=== PATIENT | male | born 1965 | race Caucasian/White ===

== ENCOUNTER 2016-03-29 19:22 | Observation (INO) | payer OTHER ==
[2016-03-29 20:02] LABS: ABSOLUTE BASOPHILS # (AUTO) 0.1 10^3/uL (0.0-0.2); ABSOLUTE EOSINOPHILS # (AUTO) 0.1 10^3/uL (0.0-0.6); ABSOLUTE LYMPHOCYTES (AUTO) 2.1 10^3/uL (0.5-4.7); ABSOLUTE MONOCYTES (AUTO) 0.8 10^3/uL (0.1-1.4); ABSOLUTE NEUT (AUTO) 6.7 10^3/uL (1.7-8.2); BASOPHILS % (AUTO) 0.8 % (0-2); EOSINOPHILS % (AUTO) 1.3 % (0-6); HEMATOCRIT 44.3 % (37.9-51.0); HEMOGLOBIN 14.9 g/dL (13.5-17.0); HGB HCT DIFFERENCE 0.4; LYMPHOCYTES % (AUTO) 21.2 % (13-45); MEAN CORPUSCULAR HEMOGLOBIN 32.1 pg (27.0-33.4); MEAN CORPUSCULAR HGB CONC 33.7 g/dL (32.0-36.0); MEAN CORPUSCULAR VOLUME 95 fl (80-97); MONOCYTES % (AUTO) 8.4 % (3-13); RED BLOOD COUNT 4.65 10^6/uL (4.35-5.55); SEGMENTED NEUTROPHILS % (AUTO) 68.3 % (42-78); WHITE BLOOD COUNT 9.7 10^3/uL (4.0-10.5)
--- NOTE | 2016-03-29 20:04 | ER Document Report ---
ED General - General Chief Complaint: Syncope Stated Complaint: FALL,HEAD INJURY Time seen by provider: 20:00 Mode of Arrival: Ambulatory Information source: Patient Notes: This is a 50-year-old man with a history of diabetes, dyslipidemia, PTSD. The patient is brought in by EMS after a witnessed syncopal episode. Patient had gotten up off the couch to go answer the door and had a syncopal episode. The patient's was with his and she states that he was completely out and that was confused and she called EMS. EMS reports that they thought that her initial EKG showed possible ST elevations in lead 1 and now. The patient does have a history of a right bundle branch block. He denies any chest pain or shortness of breath. He currently states that he has some pain in his left shoulder from the fall and right knee. - HPI Onset: Just prior to arrival Onset/Duration: Sudden Quality of pain: No pain Severity: None Pain Level: Denies Associated symptoms: denies: Chills, Fever, Shortness of breath Exacerbated by: Denies Relieved by: Denies Similar symptoms previously: Yes Recently seen / treated by doctor: No - Related Data Allergies/Adverse Reactions: No Known Allergies Allergy (Verified 03/29/16 19:50) Home Medications: Current Home Medications Atorvastatin Calcium [Lipitor 40 mg Tablet] 40 mg PO QHS 03/29/16 [History] Celecoxib [Celebrex 200 mg Capsule] 200 mg PO Q12 03/29/16 [History] Cetirizine HCl [All Day Allergy] 10 mg PO DAILY 03/29/16 [History] Clonazepam [Klonopin 1 mg Tablet] 1 mg PO BID PRN 03/29/16 [History] Empagliflozin [Jardiance] 25 mg PO DAILY 03/29/16 [History] Ergocalciferol (Vitamin D2) [Vitamin D2] 50,000 unit PO ASDIR PRN 03/29/16 [ History] Levothyroxine Sodium [Synthroid 0.088 mg Tablet] 0.088 mg PO DAILY 03/29/16 [ History] Metformin HCl [Glucophage] 1,000 mg PO BID 03/29/16 [History] Omeprazole 40 mg PO BID 03/29/16 [History] Telmisartan [Micardis 80 mg Tablet] 80 mg PO DAILY 03/29/16 [History] Venlafaxine HCl [Venlafaxine HCl ER] 150 mg PO DAILY 03/29/16 [History] Past Medical History - General Information source: Patient - Social History Smoking Status: Never Smoker Cigarette use (# per day): No Chew tobacco use (# tins/day): No Frequency of alcohol use: None Drug Abuse: None Lives with: Family Family History: None Patient has suicidal ideation: No Patient has homicidal ideation: No - Past Medical History Cardiac Medical History: Reports: Hx Hypertension Pulmonary Medical History: Reports: None Neurological Medical History: Reports: None Endocrine Medical History: Reports: Hx Diabetes Mellitus Type 2 Renal/ Medical History: Reports: None Malignancy Medical History: Reports None GI Medical History: Reports: Hx Gastroesophageal Reflux Disease Musculoskeltal Medical History: Reports None Psychiatric Medical History: Reports: Hx Anxiety, Hx Depression, Hx Post Traumatic Stress Disorder Past Surgical History: Reports: Hx Adenoidectomy, Hx Tonsillectomy Review of Systems - Review of Systems Constitutional: denies: Chills, Fever EENT: No symptoms reported Cardiovascular: No symptoms reported Respiratory: No symptoms reported Gastrointestinal: No symptoms reported Genitourinary: No symptoms reported Male Genitourinary: No symptoms reported Musculoskeletal: See HPI Skin: No symptoms reported Hematologic/Lymphatic: No symptoms reported Neurological/Psychological: See HPI Physical Exam - Vital signs Vitals: Temp 97.9 F 03/29/16 19:25 Notes: Physical exam: GENERAL: 50-year-old man, alert and oriented 3, no acute distress. Patient is lying supine with cervical collar in place. HEAD: Atraumatic, normocephalic. EYES: Pupils equal round and reactive to light, extraocular movements intact, sclera anicteric, conjunctiva are normal. ENT: TMs normal, nares patent, oropharynx clear without exudates. Moist mucous membranes. NECK: Cervical collar left in place. LUNGS: Breath sounds clear to auscultation bilaterally and equal. No wheezes rales or rhonchi. HEART: Regular rate and rhythm without murmurs, rubs or gallops. ABDOMEN: Soft, normoactive bowel sounds. No tenderness to palpation. No guarding, no rebound. No masses appreciated. EXTREMITIES: Patient has tenderness to palpation over the right knee. There is full range of motion. Distally, both toes show good cap refill, dorsal pedal pulses, no swelling or cyanosis. NEUROLOGICAL: Cranial nerves II through XII grossly intact. Normal speech, moving all extremities, good strength. PSYCH: Normal mood, normal affect. SKIN: Warm, Dry, normal turgor, no rashes or lesions noted. Course - Vital Signs Vital signs: Temp Pulse Resp BP Pulse Ox 97.9 F 14 98/54 L 90 L 03/29/16 19:25 03/29/16 22:16 03/29/16 22:16 03/29/16 22:16 - Laboratory Result Diagrams: 03/29/16 19:45 03/29/16 21:22 Laboratory results interpreted by me: 03/29/16 03/29/16 19:45 21:22 RDW 17.0 H Sodium 133.5 L Potassium 3.3 L Chloride 93 L Creatinine 1.47 H Est GFR (Non-Af Amer) 51 L Glucose 140 H Creatine Kinase 171 H - Diagnostic Test Radiology reviewed: Image reviewed, Reports reviewed - CT of the head shows no acute bleed. CT of the neck shows no fractures. CTA of the chest shows no pulmonary emboli or dissection. - EKG Interpretation by Me Rate: Tachycardia Rhythm: NSR - EKG shows a sinus tachycardia with a ventricular rate of 102, no acute ST-T wave changes Discharge - Discharge Clinical Impression: syncope Condition: Stable Disposition: ADMITTED OBSERVATION Admitting Provider: Hospitalist - Dr. Randolph Unit Admitted: Telemetry Referrals: NAEEM DOMÍNGUEZ III, MD [Primary Care Provider] - Follow up as needed
[2016-03-29] MEDS ORDERED: NORMAL SALINE 500 ML IV PRN (20:38)
[2016-03-29 21:49] LABS: ALANINE AMINOTRANSFERASE 56 U/L (21-72); ALBUMIN 3.9 g/dL (3.5-5.0); ALKALINE PHOSPHATASE 62 U/L (38-126); ANION GAP 16 (5-19); ASPARTATE AMINO TRANSFERASE 38 U/L (17-59); BILIRUBIN,TOTAL 0.5 mg/dL (0.2-1.3); BLOOD UREA NITROGEN 17 mg/dL (7-20); CALCIUM 8.7 mg/dL (8.4-10.2); CARBON DIOXIDE 25 mmol/L (22-30); CHLORIDE 93 mmol/L (98-107); CREATINE KINASE 171 U/L (55-170); CREATININE RESULT 1.47 mg/dL (0.52-1.25); GLUCOSE 140 mg/dL (75-110); POTASSIUM 3.3 mmol/L (3.6-5.0); SODIUM 133.5 mmol/L (137-145); TOTAL PROTEIN 6.7 g/dL (6.3-8.2)
[2016-03-29 22:00] LABS: CREATINE KINASE MB 3.25 ng/mL (<4.55)
[2016-03-29 22:01] LABS: TROPONIN I < 0.012 ng/mL
[2016-03-29] MEDS ORDERED: ONDANSETRON HCL INJ/PF 4 MG/2 ML SDV IV ONE (22:36)
[2016-03-29] MEDS ORDERED: MORPHINE SULFATE 10 MG/ML INJ IV ONE (22:36)
[2016-03-29] MEDS ORDERED: NORMAL SALINE 1000 ML 1,000 ML IV PRN (22:36)
[2016-03-29] MEDS ORDERED: CLONAZEPAM 1 MG TABLET PO PRN (23:35)
[2016-03-29] MEDS ORDERED: DEXTROSE 40% GEL 15 GM TUBE PO PRN ×2 (23:38)
[2016-03-29] MEDS ORDERED: GLUCAGON,HUMAN RECOMB 1 MG INJ IM PRN (23:38)
[2016-03-29] MEDS ORDERED: ACETAMINOPHEN 325 MG TABLET PO PRN (23:38)
[2016-03-29] MEDS ORDERED: DEXTROSE 50%-WATER 25 GM/50 ML DISP.SYRIN IV PRN ×2 (23:38)
[2016-03-29] MEDS ORDERED: MAGNESIUM HYDROXIDE SUSP 30 ML UDCUP PO PRN (23:38)
[2016-03-29] MEDS ORDERED: INSULIN LISPRO 100 UNIT/ML 3 ML VIAL SUBCUT PRN (23:38)
--- NOTE | 2016-03-30 00:03 | EKG REPORT ---
SEVERITY:- OTHERWISE NORMAL ECG - SINUS TACHYCARDIA : Confirmed by: Evgeny Anne 30-Mar-2016 00:02:34
[2016-03-30] MEDS ORDERED: KETOROLAC TROMETHAMINE INJ/PF 30 MG/1 ML SDV IV ONE (01:00)
[2016-03-30] MEDS ORDERED: POTASSIUM CHLORIDE 10 MEQ TABLET.SA PO ONE (01:00)
[2016-03-30 01:02] LABS: APPEARANCE,URINE CLEAR; BILIRUBIN,URINE NEGATIVE (NEGATIVE); GLUCOSE, URINE >=500 mg/dL (NEGATIVE); KETONES,URINE NEGATIVE (NEGATIVE); LEUKOCYTE ESTERASE,URINE NEGATIVE (NEGATIVE); NITRITE,URINE NEGATIVE (NEGATIVE); PROTEIN,URINE NEGATIVE (NEGATIVE); URINE SPECIFIC GRAVITY 1.007; UROBILINOGEN,URINE NEGATIVE mg/dL (<2.0)
[2016-03-30 01:17] LABS: URINE BARBITURATES SCREEN NEGATIVE; URINE METHADONE SCREEN NEGATIVE; URINE OPIATES LOW NEGATIVE; URINE PHENCYCLIDINE SCREEN NEGATIVE
[2016-03-30] MEDS: NORMAL SALINE 1000 ML 1,000 ML IV PRN ×2 (01:54→05:22)
[2016-03-30 04:09] LABS: ABSOLUTE EOSINOPHILS # (AUTO) 0.1 10^3/uL (0.0-0.6); ABSOLUTE LYMPHOCYTES (AUTO) 1.4 10^3/uL (0.5-4.7); ABSOLUTE MONOCYTES (AUTO) 0.8 10^3/uL (0.1-1.4); ABSOLUTE NEUT (AUTO) 6.2 10^3/uL (1.7-8.2); BASOPHILS % (AUTO) 0.5 % (0-2); EOSINOPHILS % (AUTO) 1.2 % (0-6); HEMATOCRIT 38.9 % (37.9-51.0); HEMOGLOBIN 13.2 g/dL (13.5-17.0); HGB HCT DIFFERENCE 0.7; LYMPHOCYTES % (AUTO) 16.6 % (13-45); MEAN CORPUSCULAR HEMOGLOBIN 32.3 pg (27.0-33.4); MEAN CORPUSCULAR VOLUME 95 fl (80-97); MONOCYTES % (AUTO) 9.1 % (3-13); RED CELL DISTRIBUTION WIDTH 16.9 % (11.5-14.0); SEGMENTED NEUTROPHILS % (AUTO) 72.6 % (42-78); WHITE BLOOD COUNT 8.6 10^3/uL (4.0-10.5)
[2016-03-30 04:16] LABS: ANION GAP 9 (5-19); BLOOD UREA NITROGEN 15 mg/dL (7-20); CALCIUM 8.1 mg/dL (8.4-10.2); CARBON DIOXIDE 27 mmol/L (22-30); CHLORIDE 98 mmol/L (98-107); CREATINE KINASE 187 U/L (55-170); CREATININE RESULT 1.17 mg/dL (0.52-1.25); GLUCOSE 117 mg/dL (75-110); SODIUM 134.3 mmol/L (137-145)
[2016-03-30 04:26] LABS: CREATINE KINASE MB 3.42 ng/mL (<4.55); TROPONIN I < 0.012 ng/mL
--- NOTE | 2016-03-30 05:19 | PDOC H&P ---
History of Present Illness Admission Date/PCP: 03/29/16 23:38 Patient complains of: Syncope History of Present Illness: MIKE SOSA is a 50 year old male with a past medical history of diabetes, obstructive sleep apnea, dyslipidemia, post traumatic stress disorder, chronic neck and back pain, tobacco and alcohol dependence. Who had been in his regular state of health until 1 hour prior to presentation he abruptly got off the couch to answer the door and fell to the ground striking his head on the wall he was evidently unconscious but without limb shaking, vomiting, tongue biting or postictal state. Upon awakening he complained of head pain left shoulder pain and right knee pain. He denies palpitations chest pain, shortness of breath or previous episode, he denies additional medications for pain or anxiety. He suspects this is a result of a new medication for diabetes started 10 days ago. Workup in the emergency room is unremarkable he is referred to the hospitalist for admission. He complains of back pain, requesting Dilaudid, with a systolic pressure in the 90s and a heart rate in the 70s Past Medical History Cardiac Medical History: Reports: Hyperlipidema, Hypertension Pulmonary Medical History: Reports: Sleep Apnea Neurological Medical History: Reports: None Endocrine Medical History: Reports: Diabetes Mellitus Type 2, Obesity Renal/ Medical History: Reports: None Malignancy Medical History: Reports: None GI Medical History: Reports: Gastroesophageal Reflux Disease Musculoskeltal Medical History: Reports: None Psychiatric Medical History: Reports: Alcohol Dependency, Depression, Post Traumatic Stress Disorder, Tobacco Dependency Past Surgical History Past Surgical History: Reports: Appendectomy, Orthopedic Surgery - L knee, Tonsillectomy Social History Information Source: Parent, Relative Lives with: Family Smoking Status: Never Smoker Frequency of Alcohol Use: Heavy - 2-3 mixed drinks per day in addition to beer Hx Recreational Drug Use: No Drugs: None, Other - Heavy use of oral tobacco daily Hx Prescription Drug Abuse: No - Advance Directive Resuscitation Status: Full Code Family History Family History: Malignancy Parental Family History Reviewed: Yes Children Family History Reviewed: Yes Sibling(s) Family History Reviewed.: Yes Medication/Allergy Home Medications: Atorvastatin Calcium [Lipitor 40 mg Tablet] 40 mg PO QHS 03/29/16 Celecoxib [Celebrex 200 mg Capsule] 200 mg PO Q12 03/29/16 Cetirizine HCl [All Day Allergy] 10 mg PO DAILY 03/29/16 Clonazepam [Klonopin 1 mg Tablet] 1 mg PO BID PRN 03/29/16 Empagliflozin [Jardiance] 25 mg PO DAILY 03/29/16 Ergocalciferol (Vitamin D2) [Vitamin D2] 50,000 unit PO ASDIR PRN 03/29/16 Levothyroxine Sodium [Synthroid 0.088 mg Tablet] 0.088 mg PO DAILY 03/29/16 Metformin HCl [Glucophage] 1,000 mg PO BID 03/29/16 Omeprazole 40 mg PO BID 03/29/16 Telmisartan [Micardis 80 mg Tablet] 80 mg PO DAILY 03/29/16 Venlafaxine HCl [Venlafaxine HCl ER] 150 mg PO DAILY 03/29/16 Allergies/Adverse Reactions: No Known Allergies Allergy (Verified 03/29/16 19:50) Review of Systems Constitutional: ABSENT: chills, fever(s), headache(s), weight gain, weight loss Eyes: ABSENT: visual disturbances Ears: ABSENT: hearing changes Cardiovascular: ABSENT: chest pain, dyspnea on exertion, edema, orthropnea, palpitations Respiratory: ABSENT: cough, hemoptysis Gastrointestinal: ABSENT: abdominal pain, constipation, diarrhea, hematemesis, hematochezia, nausea, vomiting Genitourinary: ABSENT: dysuria, hematuria Musculoskeletal: ABSENT: joint swelling Integumentary: ABSENT: rash, wounds Neurological: ABSENT: abnormal gait, abnormal speech, confusion, dizziness, focal weakness, syncope Psychiatric: ABSENT: anxiety, depression, homidical ideation, suicidal ideation Endocrine: ABSENT: cold intolerance, heat intolerance, polydipsia, polyuria Hematologic/Lymphatic: ABSENT: easy bleeding, easy bruising Physical Exam Vital Signs: Temp Pulse Resp BP Pulse Ox 97.8 F 98 18 110/54 L 95 03/30/16 02:10 03/30/16 02:10 03/30/16 02:10 03/30/16 02:10 03/30/16 02:10 Intake & Output 03/28/16 03/29/16 03/30/16 11:59 11:59 11:59 Weight 152 kg General appearance: PRESENT: cooperative, mild distress, morbidly obese Head exam: PRESENT: atraumatic, normocephalic Eye exam: PRESENT: conjunctiva pink, EOMI, PERRLA. ABSENT: scleral icterus Ear exam: PRESENT: normal external ear exam Mouth exam: PRESENT: moist, tongue midline Neck exam: ABSENT: carotid bruit, JVD, lymphadenopathy, thyromegaly Respiratory exam: PRESENT: clear to auscultation annia. ABSENT: rales, rhonchi, wheezes Cardiovascular exam: PRESENT: RRR. ABSENT: diastolic murmur, rubs, systolic murmur Pulses: PRESENT: normal dorsalis pedis pul Vascular exam: PRESENT: normal capillary refill GI/Abdominal exam: PRESENT: normal bowel sounds, soft. ABSENT: distended, guarding, mass, organolmegaly, rebound, tenderness Rectal exam: PRESENT: deferred Extremities exam: PRESENT: full ROM. ABSENT: calf tenderness, clubbing, pedal edema Neurological exam: PRESENT: alert, awake, oriented to person, oriented to place , oriented to time, oriented to situation, CN II-XII grossly intact. ABSENT: motor sensory deficit Psychiatric exam: PRESENT: anxious Skin exam: PRESENT: dry, intact, warm. ABSENT: cyanosis, rash Results Laboratory Results: 03/30/16 03:26 03/30/16 03:26 03/30/16 03/30/16 03:26 03:26 WBC 8.6 RBC 4.10 L Hgb 13.2 L Hct 38.9 MCV 95 MCH 32.3 MCHC 34.0 RDW 16.9 H Plt Count 142 L Seg Neutrophils % 72.6 Lymphocytes % 16.6 Monocytes % 9.1 Eosinophils % 1.2 Basophils % 0.5 Absolute Neutrophils 6.2 Absolute Lymphocytes 1.4 Absolute Monocytes 0.8 Absolute Eosinophils 0.1 Absolute Basophils 0.0 Sodium 134.3 L Potassium 4.0 Chloride 98 Carbon Dioxide 27 Anion Gap 9 BUN 15 Creatinine 1.17 Est GFR ( Amer) > 60 Est GFR (Non-Af Amer) > 60 Glucose 117 H Calcium 8.1 L 03/30/16 03/30/16 03:26 03:26 Creatine Kinase 187 H CK-MB (CK-2) 3.42 Troponin I < 0.012 Impressions: Chest X-Ray 03/29/16 19:50 IMPRESSION: NO ACUTE RADIOGRAPHIC FINDING IN THE CHEST. Cervical Spine CT 03/29/16 19:51 IMPRESSION: 1. NO ACUTE OR SIGNIFICANT FINDINGS IN THE CERVICAL SPINE. 2. LUCENT LESIONS IN THE PROXIMAL LEFT 2ND RIB WITH MILD EXPANSION. RECOMMEND CORRELATION WITH ANY KNOWN HISTORY OF BONE DISEASE. FOLLOW-UP BONE SCAN MAY BE CONSIDERED TO DETERMINE IF THERE IS ABNORMAL ACTIVITY RELATED TO THIS FINDING WELL IF THERE ARE ANY OTHER BONY LESIONS. Head CT 03/29/16 19:51 IMPRESSION: NORMAL BRAIN CT WITHOUT CONTRAST. Knee X-Ray 03/29/16 20:01 IMPRESSION: NEGATIVE STUDY OF THE RIGHT KNEE. NO RADIOGRAPHIC EVIDENCE OF ACUTE INJURY. Chest/Abdomen CTA 03/29/16 22:02 IMPRESSION: NORMAL CTA OF THE CHEST. NO PULMONARY EMBOLI. Assessment & Plan - Diagnosis (1) Syncope Is this a current diagnosis for this admission?: YesPlan: Does for an unclear cause though arrhythmia is possible I suspect orthostatic hypotension complicated by chronic pain and anxiety, he'll be admitted to the telemetry floor I'll obtain carotid Doppler and 2-D echo with orthostatic blood pressure checks and IV fluid challenge and consideration of outpatient Holter monitor. (2) Orthostatic hypotension Is this a current diagnosis for this admission?: YesPlan: Please see #1 (3) Polypharmacy Is this a current diagnosis for this admission?: YesPlan: I'll reduce his Klonopin dose by half and reevaluate. Though the patient takes daily Klonopin and received IV morphine by the emergency room provider his urine drug screen test negative. Given his dependence on tobacco, alcohol and Klonopin. I will avoid narcotics (4) Diabetes 1.5, managed as type 2 Plan: Continue home regiment in addition to sliding scale insulin (5) Chronic pain Is this a current diagnosis for this admission?: YesPlan: Patient requesting Dilaudid without obvious source of injury on exam will avoid narcotics - Time Time Spent: 50 to 70 Minutes
[2016-03-30] MEDS: HEPARIN SOD (PORCINE) 5,000 UNIT/ML 1 ML SYRINGE SUBCUT SCH ×2 (05:23→15:22)
[2016-03-30] MEDS ORDERED: LANSOPRAZOLE 30 MG TAB.RAP.DR PO SCH (06:00)
[2016-03-30] MEDS ORDERED: LEVOTHYROXINE SODIUM 0.088 MG TABLET PO SCH (06:00)
[2016-03-30 09:52] LABS: CREATINE KINASE MB 3.56 ng/mL (<4.55)
[2016-03-30 09:59] LABS: TROPONIN I < 0.012 ng/mL
[2016-03-30] MEDS ORDERED: VENLAFAXINE HCL 75 MG CAP.SR.24H PO SCH (10:00)
[2016-03-30] MEDS ORDERED: CELECOXIB 200 MG CAPSULE PO SCH (10:00)
[2016-03-30] MEDS ORDERED: METFORMIN HCL 500 MG TABLET PO SCH (10:00)
[2016-03-30] MEDS ORDERED: CYCLOBENZAPRINE HCL 10 MG TABLET PO SCH ×2 (12:00→14:00)
[2016-03-30 15:56] VITALS: BP 125/66
[2016-03-30 16:12] LABS: CREATINE KINASE MB 2.54 ng/mL (<4.55)
[2016-03-30 16:16] LABS: TROPONIN I < 0.012 ng/mL
--- NOTE | 2016-03-30 16:54 | PDOC DISCHARGE SUMMARY ---
General - Admit/Disc Date/PCP Admission Date/Primary Care Provider: 03/29/16 23:38 Discharge Date: 03/30/16 - Discharge Diagnosis (1) Syncope Is this a current diagnosis for this admission?: Yes (2) Orthostatic hypotension Is this a current diagnosis for this admission?: Yes (3) Chronic pain Is this a current diagnosis for this admission?: Yes (4) Diabetes 1.5, managed as type 2 Is this a current diagnosis for this admission?: Yes (5) Polypharmacy Is this a current diagnosis for this admission?: Yes - Additional Information Resuscitation Status: Full Code Discharge Diet: Cardiac - low fat, low salt, Diabetic - no concentrated sweets Discharge Activity: Activity As Tolerated, Balance Activity w/Rest Home Medications: Albiglutide [Tanzeum] 30 mg SQ BRUCE@1000 03/30/16 Atorvastatin Calcium [Lipitor 40 mg Tablet] 40 mg PO QHS 03/30/16 Celecoxib [Celebrex 200 mg Capsule] 200 mg PO Q12 03/30/16 Cetirizine HCl [Zyrtec 10 mg Tablet] 1 tab PO BID@0600,2000 03/30/16 Clonazepam [Klonopin 1 mg Tablet] 0.5 mg PO Q12 #0 03/30/16 Clonazepam [Klonopin 1 mg Tablet] 1 mg PO PRN PRN 03/30/16 Cyclobenzaprine HCl [Flexeril 10 mg Tablet] 10 mg PO TID@0800,1200,1600 PRN #30 tablet 03/30/16 Empagliflozin [Jardiance] 25 mg PO DAILY 03/30/16 Ergocalciferol (Vitamin D2) [Drisdol 50,000 unit (1.25MG) Capsule] 50,000 unit PO BRUCE@1000 03/30/16 Levothyroxine Sodium [Synthroid 0.088 mg Tablet] 88 mcg PO DAILY 03/30/16 Metformin HCl [Glucophage] 1,000 mg PO BID 03/30/16 Omeprazole 40 mg PO BID 03/30/16 Telmisartan [Micardis 80 mg Tablet] 80 mg PO DAILY 03/30/16 Venlafaxine HCl ER [Effexor Xr 75 mg Cap.sr] 150 mg PO DAILY 03/30/16 Additional Information: 1. Follow-up echocardiogram result as outpatient with primary care physician or cardiology. 2. Event recorder as an outpatient with cardiology. History of Present Illness Patient complains of: Syncope History of Present Illness: MIKE SOSA is a 50 year old male, with diabetes, obstructive sleep apnea, PTSD, dyslipidemia, chronic pain presents to the hospital because of syncopal episode after standing abruptly to open the main door of his house to answer someone. Patient does not remember the episode, the ambulance was called and the family reports that the patient blood sugar was normal. For details please refer to history and physical examination performed by the admitting physician. Hospital Course Hospital Course: The patient was admitted to telemetry. The patient was hydrated with fluids. He is on chronic Klonopin and the dose was cut into half. Serial cardiac enzymes were obtained and they were negative for myocardial infarction. Orthostatic blood pressure was obtained and they were normal. Carotid Doppler did not reveal any hemodynamically significant stenosis. 2-D echocardiogram was obtained, and the result is pending and patient advised to follow it up on an outpatient basis. The patient reports generalized stiffness and a trial of Flexeril helped the patient tried to get up. Discomfort on the neck and back improved as well the muscle relaxant. Patient was advised to have an event recorder on an outpatient basis with cardiology service. Patient was scheduled to visit with Dr. Anne cardiology service in 2 weeks. She had a cervical spine CT that was negative for fracture but has some lucency under second rib which is not visualized or seen on the chest CT scan. Chest CT did not reveal any infiltrate or pulmonary embolism. Head CT scan was likewise negative for any acute abnormality. The rest of the hospital stays unremarkable. Physical Exam Vital Signs: Temp Pulse Resp BP Pulse Ox 97.6 F 103 H 17 125/66 96 03/30/16 15:41 03/30/16 15:41 03/30/16 15:41 03/30/16 15:41 03/30/16 15:41 Intake & Output 03/29/16 03/30/16 03/31/16 06:59 06:59 06:59 Intake Total 1311 800 Output Total 300 Balance 1311 500 Weight 152 kg General appearance: PRESENT: no acute distress, cooperative, morbidly obese Head exam: PRESENT: normocephalic Eye exam: PRESENT: EOMI Mouth exam: PRESENT: moist, neck supple Neck exam: ABSENT: JVD Respiratory exam: PRESENT: clear to auscultation annia Cardiovascular exam: PRESENT: RRR GI/Abdominal exam: PRESENT: distended - Obese, soft Neurological exam: PRESENT: alert, awake, oriented to person, oriented to place , oriented to time, oriented to situation Psychiatric exam: ABSENT: agitated Focused psych exam: ABSENT: restlessness Skin exam: PRESENT: dry, warm. ABSENT: cyanosis Results Laboratory Results: 03/30/16 03:26 03/30/16 03:26 03/30/16 03/30/16 03:26 03:26 WBC 8.6 RBC 4.10 L Hgb 13.2 L Hct 38.9 MCV 95 MCH 32.3 MCHC 34.0 RDW 16.9 H Plt Count 142 L Seg Neutrophils % 72.6 Lymphocytes % 16.6 Monocytes % 9.1 Eosinophils % 1.2 Basophils % 0.5 Absolute Neutrophils 6.2 Absolute Lymphocytes 1.4 Absolute Monocytes 0.8 Absolute Eosinophils 0.1 Absolute Basophils 0.0 Sodium 134.3 L Potassium 4.0 Chloride 98 Carbon Dioxide 27 Anion Gap 9 BUN 15 Creatinine 1.17 Est GFR ( Amer) > 60 Est GFR (Non-Af Amer) > 60 Glucose 117 H Calcium 8.1 L 03/30/16 03/30/16 03/30/16 03:26 03:26 09:08 Creatine Kinase 187 H 188 H CK-MB (CK-2) 3.42 Troponin I < 0.012 03/30/16 03/30/16 03/30/16 09:08 15:35 15:35 Creatine Kinase 152 CK-MB (CK-2) 3.56 2.54 Troponin I < 0.012 < 0.012 Impressions: Chest X-Ray 03/29/16 19:50 IMPRESSION: NO ACUTE RADIOGRAPHIC FINDING IN THE CHEST. Cervical Spine CT 03/29/16 19:51 IMPRESSION: 1. NO ACUTE OR SIGNIFICANT FINDINGS IN THE CERVICAL SPINE. 2. LUCENT LESIONS IN THE PROXIMAL LEFT 2ND RIB WITH MILD EXPANSION. RECOMMEND CORRELATION WITH ANY KNOWN HISTORY OF BONE DISEASE. FOLLOW-UP BONE SCAN MAY BE CONSIDERED TO DETERMINE IF THERE IS ABNORMAL ACTIVITY RELATED TO THIS FINDING WELL IF THERE ARE ANY OTHER BONY LESIONS. Head CT 03/29/16 19:51 IMPRESSION: NORMAL BRAIN CT WITHOUT CONTRAST. Knee X-Ray 03/29/16 20:01 IMPRESSION: NEGATIVE STUDY OF THE RIGHT KNEE. NO RADIOGRAPHIC EVIDENCE OF ACUTE INJURY. Chest/Abdomen CTA 03/29/16 22:02 IMPRESSION: NORMAL CTA OF THE CHEST. NO PULMONARY EMBOLI. Carotid Doppler Study 03/30/16 00:00 IMPRESSION: NO HEMODYNAMICALLY SIGNIFICANT STENOSIS. Qualifiers PATEINT BEING DISCHARGED WITH ANY OF THE FOLLOWING DIAGNOSIS?: No Plan Discharge Plan: Follow-up with primary care physician in one week. Follow-up with cardiology. Dr. Anne in 2 weeks. Time Spent: Less than 30 Minutes
--- NOTE | 2016-03-30 18:07 | XCELERA REPORT ---
[address] [address] Transthoracic Echocardiogram Report Name: MIKE SOSA Age: 50 yrs Gender: Male : 1965 Patient Status: Inpatient Patient Location: 5\S\537\S\A Study Date: 03/30/2016 08:24 AM Height: 75 in Weight: 310 lb BSA: 2.6 m2 Procedure: A two-dimensional transthoracic echocardiogram with color flow and Doppler was performed. Study Quality: Technically suboptimal. Images were not obtained from all of the standard acoustic windows due to the limited scope of the study. Reason For Study: Syncope / JIM History: Syncope / JIM. Ordering Physician: NAEEM CHRISTOPHER Performed By: Radha Rowe Interpretation Summary Syncope / JIM The left ventricle is grossly normal size. There is normal left ventricular wall thickness. No 'True Apical 2 chamber views ' obtained.Hence cannot comment on the apical and basal Inferior and the apical and basal anterior borges.The mid Inferior,the mid anterior , and the rest of the LV borges probably contract normally , and in these views the LVEF is normal,and in excess of 65%. Doppler measurements suggest normal left ventricular diastolic function The left atrial size is normal. There is no evidence of mitral valve prolapse. There is no mitral valve stenosis. There is no mitral regurgitation noted. There is no aortic valve stenosis No aortic regurgitation is present. There is no tricuspid stenosis. There is a trace amount of tricuspid regurgitation Right ventricular systolic pressure is normal. RVSP is 21 to 26 with RA mean of 5 to 10. The aortic root is mildly dilated There is no pericardial effusion. MMode/2D Measurements \T\ Calculations RVDd: 2.8 cm LVIDd: 5.9 cm FS: 42.5 % Ao root diam: 4.0 cm IVSd: 1.1 cm LVIDs: 3.4 cm EDV(Teich): 172.7 ml LVPWd: 1.00 cm ESV(Teich): 46.9 ml Ao root area: 12.5 cm2 EF(Teich): 72.8 % LA dimension: 3.4 cm LVOT diam: 2.4 cm LVOT area: 4.5 cm2 Doppler Measurements \T\ Calculations MV E max julianna: MV P1/2t max julianna: Ao V2 max: LV V1 max P.7 cm/sec 101.2 cm/sec 160.6 cm/sec 6.6 mmHg MV A max julianna: MV P1/2t: 41.3 msec Ao max PG: LV V1 max: 71.1 cm/sec MVA(P1/2t): 5.3 cm2 10.3 mmHg 128.3 cm/sec MV E/A: 1.4 MV dec slope: MORGAN(V,D): 3.6 cm2 718.4 cm/sec2 MV dec time: 0.15 sec PA V2 max: TR max julianna: 103.2 cm/sec 201.7 cm/sec PA max PG: TR max P.3 mmHg 4.3 mmHg Left Ventricle The left ventricle is grossly normal size. There is normal left ventricular wall thickness. No 'True Apical 2 chamber views ' obtained.Hence cannot comment on the apical and basal Inferior and the apical and basal anterior borges.The mid Inferior,the mid anterior , and the rest of the LV borges probably contract normally , and in these views the LVEF is normal,and in excess of 65%. Doppler measurements suggest normal left ventricular diastolic function. Right Ventricle The right ventricle is not well visualized secondary to technical limitations. Atria Right atrium not well visualized secondary to technical limitations. The left atrial size is normal. Mitral Valve There is no evidence of mitral valve prolapse. There is no vegetation seen on the mitral valve. There is no mitral valve stenosis. There is no mitral regurgitation noted. Aortic Valve There is no aortic valve stenosis. There is no LVOT obstruction. No aortic regurgitation is present. Tricuspid Valve There is no tricuspid stenosis. There is a trace amount of tricuspid regurgitation. Right ventricular systolic pressure is normal. RVSP is 21 to 26 with RA mean of 5 to 10. Pulmonic Valve The pulmonic valve is not well visualized. Great Vessels The aortic root is mildly dilated. Effusions There is no pericardial effusion. : NAEEM CHRISTOPHER > Montserrat Darby
[2016-03-30] MEDS ORDERED: ATORVASTATIN CALCIUM 40 MG TABLET PO SCH (22:00)
== END 2016-03-30 17:22 | disposition home or self-care (01) ==
LOC: ER 19:22 → EH 23:28 → UNDOADMOB 23:28 → EH 23:38 → 5 03-30 02:09
PROVIDERS: ADMIT Internal Medicine; ATTEND Internal Medicine
PROC: 3E0337Z Introduction of Electrolytic and Water Balance Substance into Peripheral Vein, Percutaneous Approach (ICD-10-PCS; principal; 2016-03-29)
PROC: 3E033GC Introduction of Other Therapeutic Substance into Peripheral Vein, Percutaneous Approach (ICD-10-PCS; 2016-03-29)
PROC: 3E033GC Introduction of Other Therapeutic Substance into Peripheral Vein, Percutaneous Approach (ICD-10-PCS; 2016-03-29)
DX: R55 Syncope and collapse (principal); I95.1 Orthostatic hypotension; G89.29 Other chronic pain; F41.9 Anxiety disorder, unspecified; F32.9 Major depressive disorder, single episode, unspecified; E11.9 Type 2 diabetes mellitus without complications; Z79.899 Other long term (current) drug therapy; Z79.4 Long term (current) use of insulin; G47.33 Obstructive sleep apnea (adult) (pediatric); F43.10 Post-traumatic stress disorder, unspecified; E78.5 Hyperlipidemia, unspecified; I10 Essential (primary) hypertension; E66.9 Obesity, unspecified; F10.20 Alcohol dependence, uncomplicated; F17.200 Nicotine dependence, unspecified, uncomplicated
CPT/HCPCS: 93005; 99285; 96361; 96374; 96375; 36415 ×2; 82553 ×2; 82962; 82550 ×2; 83735; 85025 ×2; 80048; 80053; 81001; 84484 ×2; 80307; 93306; 93880; 71010; 73562; 70450; 71275; 72125; 93010; G0378 ×2; J1885; J2270; J2405; J7030 ×2

== ENCOUNTER → 2016-05-24 | Outpatient (CLI) | payer OTHER | LOC: RAD 12:25 | PROVIDERS: ATTEND Internal Medicine Cardiovascular Disease | DX: S00.93XA Contusion of unspecified part of head, initial encounter (principal); X58.XXXA Exposure to other specified factors, initial encounter; R55 Syncope and collapse; R51 Headache | CPT/HCPCS: 70450 ==

== ENCOUNTER 2016-05-25 15:48 | Emergency (ER) | payer MEDICARE, OTHER ==
[2016-05-25] MEDS ORDERED: ASPIRIN 81 MG TABLET, CHEWABLE PO ONE (16:03)
--- NOTE | 2016-05-25 16:31 | ER Document Report ---
ED Medical Screen (RME) - General Chief Complaint: Chest Pain Stated Complaint: CHEST PAIN Notes: The patient is a 51-year-old male, past medical history hypertension, diabetes, "blocked coronary artery", presents from his stop attacher's office (Dr. Anne) after he saw the PA earlier today about a blood pressure of 168/128. He was having mild chest pressure and diaphoresis, which prompted him to check his blood pressure at home. He had a stress test one week ago which showed a blocked coronary artery and is scheduled for a catheterization in 2 weeks. He is also having frequent syncopal episodes over the past few weeks. He says that his Holter monitor showed multiple arrhythmia episodes. He had a head CT, which was negative, yesterday due to a fall after syncopal episode and headache. He denies shortness of breath, numbness, tingling, nausea, vomiting or back pain. I have greeted and performed a rapid initial assessment of this patient. A comprehensive ED assessment and evaluation of the patient, analysis of test results and completion of the medical decision making process will be conducted by additional ED providers. TRAVEL OUTSIDE OF THE [place] IN LAST 30 DAYS: No - Related Data Allergies/Adverse Reactions: No Known Allergies Allergy (Verified 05/25/16 16:01) Past Medical History - Past Medical History Cardiac Medical History: Reports: Hx Hypercholesterolemia, Hx Hypertension Pulmonary Medical History: Reports: Hx Sleep Apnea Endocrine Medical History: Reports: Hx Diabetes Mellitus Type 2 Renal/ Medical History: Denies: Hx Peritoneal Dialysis GI Medical History: Reports: Hx Gastroesophageal Reflux Disease Psychiatric Medical History: Reports: Hx Anxiety, Hx Depression, Hx Post Traumatic Stress Disorder Past Surgical History: Reports: Hx Adenoidectomy, Hx Appendectomy, Hx Orthopedic Surgery - L knee, Hx Tonsillectomy - Immunizations Hx Diphtheria, Pertussis, Tetanus Vaccination: Yes Physical Exam - Vital signs Vitals: Temp Pulse Resp BP Pulse Ox 99.0 F 81 16 159/101 H 96 05/25/16 15:59 05/25/16 15:59 05/25/16 15:59 05/25/16 15:59 05/25/16 15:59 Course - Vital Signs Vital signs: Temp Pulse Resp BP Pulse Ox 99.0 F 81 16 159/101 H 96 05/25/16 15:59 05/25/16 15:59 05/25/16 15:59 05/25/16 15:59 05/25/16 15:59
--- NOTE | 2016-05-25 17:05 | ER Document Report ---
ED Cardiac - General Time seen by provider: 17:20 Mode of Arrival: Ambulatory Information source: Patient TRAVEL OUTSIDE OF THE [place] IN LAST 30 DAYS: No - HPI Patient complains to provider of: Chest pain Quality of pain: Achy, Dull Associated symptoms: Diaphoresis Similar symptoms previously: No Recently seen / treated by doctor: No <THO MORIN - Last Filed: 05/25/16 19:20> <CORNELIA THURMAN - Last Filed: 05/25/16 22:12> - General Chief Complaint: Chest Pain Stated Complaint: CHEST PAIN Notes: Patient is a 51 year old male presenting to the emergency department for chest pain and diaphoresis. Patient has a history of a negative stress test last week and is followed by Dr. Anne. Patient is scheduled to have a cardiac catheterization on 06/08/16 at [facility]. Patient states he saw Dr. Anne's PA in the office yesterday. Patient was told to stop taking his blood pressure medications at this time. Patient was being evaluated for multiple syncopal events that have been occurring recently. Patient states he also has a headache and some nausea that may be caused by his current concussion from one of his syncopal events that occurred on Monday. Patient states today he had chest pain that was dull and achy and he states that he was extremely diaphoretic during the event. Patient did not take any ASA today. Patient denies being on any blood thinners. Patient states he called Dr. Anne's office and the PA recommended him to come into the emergency department. Patient has no known allergies. (THO MORIN) - Related Data Allergies/Adverse Reactions: No Known Allergies Allergy (Verified 05/25/16 16:01) Past Medical History - General Information source: Patient - Social History Smoking Status: Unknown if Ever Smoked Family History: None, Malignancy Patient has suicidal ideation: No Patient has homicidal ideation: No - Past Medical History Cardiac Medical History: Reports: Hx Hypercholesterolemia, Hx Hypertension Pulmonary Medical History: Reports: Hx Sleep Apnea Endocrine Medical History: Reports: Hx Diabetes Mellitus Type 2 GI Medical History: Reports: Hx Gastroesophageal Reflux Disease Psychiatric Medical History: Reports: Hx Anxiety, Hx Depression, Hx Post Traumatic Stress Disorder Past Surgical History: Reports: Hx Adenoidectomy, Hx Appendectomy, Hx Orthopedic Surgery - L knee, Hx Tonsillectomy - Immunizations Hx Diphtheria, Pertussis, Tetanus Vaccination: Yes Hx Pneumococcal Vaccination: 02/13/14 <DARRIANCAITLINTHO - Last Filed: 05/25/16 19:20> Review of Systems - Review of Systems Constitutional: See HPI, Diaphoresis EENT: No symptoms reported Cardiovascular: See HPI, Chest pain Respiratory: No symptoms reported Gastrointestinal: See HPI, Nausea Genitourinary: No symptoms reported Male Genitourinary: No symptoms reported Musculoskeletal: No symptoms reported Skin: No symptoms reported Hematologic/Lymphatic: No symptoms reported Neurological/Psychological: See HPI, Headaches -: Yes All other systems reviewed and negative <THO MORIN - Last Filed: 05/25/16 19:20> Physical Exam - Vital signs Interpretation: Hypertensive - General General appearance: Appears well, Alert In distress: Mild - HEENT Head: Normocephalic, Atraumatic Eyes: Normal Pupils: PERRL Mucous membranes: Moist - Respiratory Respiratory status: No respiratory distress Chest status: Nontender Breath sounds: Normal Chest palpation: Normal - Cardiovascular Rhythm: Regular Heart sounds: Normal auscultation Murmur: No - Abdominal Inspection: Normal Distension: No distension Bowel sounds: Normal Tenderness: Nontender Organomegaly: No organomegaly - Back Back: Normal, Nontender - Extremities General upper extremity: Normal inspection, Normal ROM, Normal strength General lower extremity: Normal inspection, Normal ROM, Normal strength - Neurological Neuro grossly intact: Yes Cognition: Normal Orientation: AAOx4 Pease Coma Scale Eye Opening: Spontaneous Pease Coma Scale Verbal: Oriented Pease Coma Scale Motor: Obeys Commands Enedina Coma Scale Total: 15 Speech: Normal - Psychological Associated symptoms: Normal affect, Normal mood - Skin Skin Temperature: Warm Skin Moisture: Dry <THO MORIN - Last Filed: 05/25/16 19:20> <CORNELIA THURMAN - Last Filed: 05/25/16 22:12> - Vital signs Vitals: Temp Pulse Resp BP Pulse Ox 99.0 F 81 16 159/101 H 96 05/25/16 15:59 05/25/16 15:59 05/25/16 15:59 05/25/16 15:59 05/25/16 15:59 Course - Laboratory Result Diagrams: 05/25/16 17:10 05/25/16 17:10 - Consults [facility] Time consulted: 17:28 <THO MORIN - Last Filed: 05/25/16 19:20> - Laboratory Result Diagrams: 05/25/16 17:10 05/25/16 17:10 - Diagnostic Test Radiology reviewed: Reports reviewed - EKG Interpretation by Me EKG shows normal: Sinus rhythm Rate: Normal Rhythm: NSR <CORNELIA THURMAN - Last Filed: 05/25/16 22:12> - Re-evaluation Re-evalutation: 05/25/16 18:06 Patient is a 51-year-old male with a stress test showing ischemia as outpatient. I do not have access to this report. Patient is supposed to be getting a cardiac catheterization in 2 weeks. Discussed with cardiology at [facility]. They will accept the patient for evaluation in transfer. No acute changes on EKG. Initial troponin is negative. Discussed with patient who agrees with this plan. Stable for transfer 05/25/16 22:30 Transfer coming to the patient. Patient has no pain at this time. Resting comfortably vital stable. Stable for transport. (CORNELIA THURMAN) - Vital Signs Vital signs: Temp Pulse Resp BP Pulse Ox 99.0 F 81 13 155/98 H 97 05/25/16 15:59 05/25/16 15:59 05/25/16 18:15 05/25/16 18:15 05/25/16 18:15 - Laboratory Laboratory results interpreted by me: 05/25/16 05/25/16 17:10 17:10 RBC 4.05 L Hgb 13.4 L RDW 15.1 H Chloride 97 L BUN 23 H Glucose 128 H - Consults [facility] Reason for consultation: 05/25/16 17:28 Contacted [facility] for possible transfer. 05/25/16 17:46 Call back from [facility]; spoke to Dr. Alvarez who accepts the patient for transfer. (THO MORIN) Critical Care Note - Critical Care Note Total time excluding time spent on procedures (mins): 45 - evaluation and management of patient with known coronary artery disease, multiple re- evaluations, coordination with tertiary care facility, consultation with specialist, counseling of patient and family <CORNELIA THURMAN - Last Filed: 05/25/16 22:12> Discharge <THO MORIN - Last Filed: 05/25/16 19:20> <CORNELIA THURMAN - Last Filed: 05/25/16 22:12> - Discharge Clinical Impression: ACS (acute coronary syndrome) Chest pain Qualifiers: Chest pain type: unspecified Qualified Code(s): R07.9 - Chest pain, unspecified Condition: Stable Disposition: [facility] Scribe Attestation: 05/25/16 22:12 I personally performed the services described in the documentation, reviewed and edited the documentation which was dictated to the scribe in my presence, and it accurately records my words and actions. (CORNELIA THURMAN) Scribe Documentation - Scribe Written by Glenna:: Tho Morin 05/25/16 17:35 acting as scribe for :: Alfonso <THO MORIN - Last Filed: 05/25/16 19:20>
[2016-05-25 17:23] LABS: ABSOLUTE EOSINOPHILS # (AUTO) 0.1 10^3/uL (0.0-0.6); ABSOLUTE LYMPHOCYTES (AUTO) 1.9 10^3/uL (0.5-4.7); ABSOLUTE MONOCYTES (AUTO) 0.9 10^3/uL (0.1-1.4); ABSOLUTE NEUT (AUTO) 4.8 10^3/uL (1.7-8.2); BASOPHILS % (AUTO) 0.5 % (0-2); EOSINOPHILS % (AUTO) 1.1 % (0-6); HEMATOCRIT 39.1 % (37.9-51.0); HEMOGLOBIN 13.4 g/dL (13.5-17.0); HGB HCT DIFFERENCE 1.1; LYMPHOCYTES % (AUTO) 24.7 % (13-45); MEAN CORPUSCULAR HEMOGLOBIN 33.2 pg (27.0-33.4); MEAN CORPUSCULAR HGB CONC 34.4 g/dL (32.0-36.0); MEAN CORPUSCULAR VOLUME 97 fl (80-97); MONOCYTES % (AUTO) 11.5 % (3-13); RED BLOOD COUNT 4.05 10^6/uL (4.35-5.55); RED CELL DISTRIBUTION WIDTH 15.1 % (11.5-14.0); SEGMENTED NEUTROPHILS % (AUTO) 62.2 % (42-78); WHITE BLOOD COUNT 7.7 10^3/uL (4.0-10.5)
[2016-05-25 17:30] LABS: PROTHROMBIN TIME 12.7 SEC (11.4-15.4)
[2016-05-25 17:31] LABS: PARTIAL THROMBOPLASTIN TIME 31.3 SEC (23.5-35.8)
[2016-05-25 17:45] LABS: ANION GAP 12 (5-19); BLOOD UREA NITROGEN 23 mg/dL (7-20); CALCIUM 9.3 mg/dL (8.4-10.2); CARBON DIOXIDE 30 mmol/L (22-30); CHLORIDE 97 mmol/L (98-107); CREATINE KINASE 158 U/L (55-170); CREATININE RESULT 1.13 mg/dL (0.52-1.25); GLUCOSE 128 mg/dL (75-110); POTASSIUM 3.9 mmol/L (3.6-5.0); SODIUM 138.9 mmol/L (137-145)
[2016-05-25 17:58] LABS: TROPONIN I < 0.012 ng/mL
[2016-05-25] MEDS ORDERED: LORAZEPAM INJ 2 MG/1 ML VIAL IV ONE (18:02)
[2016-05-25] MEDS ORDERED: ACETAMINOPHEN 325 MG TABLET PO ONE (18:05)
[2016-05-25] MEDS: NITROGLYCERIN 0.4 MG/TAB 25 TAB/BOTTLE SL PRN ×2 (18:09→18:14)
--- NOTE | 2016-05-25 19:09 | EKG REPORT ---
SEVERITY:- NORMAL ECG - SINUS RHYTHM : Confirmed by: Luis German MD 25-May-2016 19:08:12
[2016-05-25] MEDS ORDERED: LORAZEPAM 0.5 MG TABLET PO ONE (22:06)
[2016-05-26] MEDS ORDERED: MORPHINE SULFATE 10 MG/ML INJ IV ONE (06:52)
[2016-05-26] MEDS: NITROGLYCERIN 0.4 MG/TAB 25 TAB/BOTTLE SL PRN ×2 (08:13→08:18)
[2016-05-26] MEDS ORDERED: NITROGLYCERIN 2% OINTMENT 1 GM PACKET ONE (08:23)
--- NOTE | 2016-05-26 08:23 | ER Document Report ---
Doctor's Note Notes: 05/26/16 08:18 This patient was signed out to me by Dr. Martinez this 6 AM at shift change. This is originally Dr. Benz's patient that was being admitted for chest pain and transferred to [facility] as he was already set up for a heart catheterization there late May after a recent positive stress test. He had come in last night with new episode of chest pain which apparently was relieved after nitroglycerin. This morning patient states that the chest pain came back sometime through the java web services developer but he didn't tell anyone until his dayshift came back and he has now had another sublingual and the chest pain is gone again. We will put some nitro paste on him. His heart sounds are normal. Getting another EKG. His transportation reportedly is to arrive in about 40 minutes for transport to [facility]. 05/26/16 08:45 Second EK:27:28heart rate 73, normal sinus rhythm, normal axis, normal intervals, no ST elevations, biphasic T waves in V4 and V5, T-wave flattening/ inversion in leads 3 and aVF, as interpreted by me. Compared with EKG of 01/29 at 15:53:19, biphasic P waves are new.
[2016-05-26] MEDS ORDERED: NITROGLYCERIN 2% OINTMENT 1 GM PACKET TP ONE (08:47)
[2016-05-26 09:43] VITALS: BP 131/94
--- NOTE | 2016-05-26 19:52 | EKG REPORT ---
SEVERITY:- NORMAL ECG - SINUS RHYTHM : Confirmed by: Luis German MD 26-May-2016 19:51:01
== END 2016-05-26 09:45 | disposition short-term general hospital (02) ==
LOC: ER 15:48
DX: I24.9 Acute ischemic heart disease, unspecified (principal); R07.9 Chest pain, unspecified
CPT/HCPCS: 93005 ×2; 99291; 96374; 96375; 36415; 82550; 85025; 85610; 85730; 80048; 84484; 83880; 71020; 93010 ×2; J2270; J2060